=== PATIENT | male | born 1980 | race Two or more races ===

== ENCOUNTER 2019-03-04 14:53 | Emergency (ER) | payer MEDICAID ==
[~2019-03-04] VITALS: Ht 162.6 cm; Wt 72.6 kg
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
[2019-03-04 15:11] VITALS: BP 125/70
--- NOTE | 2019-03-04 15:36 | NUR ---
ED Nurse Note: TYLENOL 650 MG 2 TABS CONTAMINATED. PULLED OUT ANOTHER 650MG 2 TABS TYLENOL FROM [facility] [employer].
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
[2019-03-04] MEDS ORDERED: IBUPROFEN600 MG ORAL (17:16)
[2019-03-04] MEDS ORDERED: ROBAXIN-750750 MG PO (17:16)
[2019-03-04] MEDS ORDERED: LIDODERM700 M1 TOPIC (17:16)
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
[2019-03-04 17:32] VITALS: BP 127/78
--- NOTE | 2019-03-04 17:32 | NUR ---
ER DISCHARGE NOTE: Patient is cleared to be discharged per ERMD, pt is aox4, on room air, with stable vital signs. pt was given dc and prescription instructions, pt was able to verbalize understanding, pt id band and iv site removed without complications. pt is able to ambulate with steady gait. pt took all belongings.
== END 2019-03-04 17:32 | disposition home or self-care (01) ==
LOC: EDBD 14:53 → EDSEX 15:05 → EMR 15:05
DX: S16.1XXA Strain of muscle, fascia and tendon at neck level, initial encounter (principal); S00.531A Contusion of lip, initial encounter; S02.5XXA Fracture of tooth (traumatic), initial encounter for closed fracture; M54.9 Dorsalgia, unspecified; V43.62XA Car passenger injured in collision with other type car in traffic accident, initial encounter; Y92.410 Unspecified street and highway as the place of occurrence of the external cause
CPT/HCPCS: 70486; 72125; Z7502; 99284